=== PATIENT | female | born 1950 | race Caucasian/White ===

== ENCOUNTER → 2017-08-20 | Outpatient (CLI) | payer OTHER, MEDICARE ==
[~2017-08-20] MED LIST: ACT5 PO; ASPEC325 PO; CLB200 PO; ESTR0.3T PO; ONDA4TAB46 PO
--- NOTE | 2017-08-20 12:21 | DIAGNOSTIC IMAGING REPORT ---
VIDEO SWALLOW CLINICAL HISTORY: 67 years-old Female presenting with DYSPHAGIA. TECHNIQUE: Video fluoroscopic evaluation of swallowing was performed in the AP and lateral projections in conjunction with speech pathology. The patient was administered various textures, including nectar-thick and thin liquid barium, a barium coated wafer, and barium pudding. COMPARISON: None. FINDINGS: There is normal hyoid excursion and epiglottic deflection. No significant penetration or aspiration identified. Swallowing function is within normal limits. Intraesophageal reflux suggested. Fluoroscopy dosage (mGy): Not available. Fluoroscopy time: 2.8 minutes. Number of fluoroscopic spot images: 0. IMPRESSION: 1. No aspiration identified. 2. Please see the speech pathologist report for detailed findings and recommendations. Electronically signed by: Mayur Jiménez M.D. 08/20/2017 12:19 PM Dictated Date/Time: 08/20/2017 12:17 PM
--- NOTE | 2017-08-20 13:49 | SWALLOWING EVALUATION ---
HISTORY: This 67 year old woman was referred for a video swallow study at [facility] in order to rule out aspiration and identify the safest consistencies for optimal oral intake. The patient reports feeling tightness in her throat and occasional globus sensation. She also reports that at times she feels as though food gets "stuck" in her throat and has some difficulty swallowing pills. PMH is significant for DJD, osteoporosis, Sjogren's, and macular degeneration. 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 Current diet is regular. PROCEDURE: The patient was seen in the Radiology Department of [facility] for the [facility]. Cursory examination of the oral cavity revealed natural dentition in good condition. Oral motor function was wnl. 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 The patient was seated on a stool and was viewed in both the Anterior-Posterior (A-P) and Lateral planes. Volitional phonation exercises completed in the A-P plane revealed bilateral vocal fold movement and vocal intensity within functional limits. In the lateral plane, the patient was given the following boluses: 1 tsp. thin liquid barium x 2, single swallow thin liquid barium self-presented from a cup, sequential swallows of thin liquid barium self-presented from a straw, 1 tsp. nectar-thick liquid barium, single swallow nectar-thick liquid barium self-presented from a cup, 1 tsp. barium pudding, and 1 club cracker coated in barium pudding. The patient was then repositioned into the A-P plane and given the following boluses: 1 tsp. nectar thick barium and 1 tsp. barium pudding. A barium tablet was also administered. RESULTS: Oral Stage: Lip closure was adequate. The patient was able to maintain a cohesive liquid bolus in the oral cavity without any escape during the liquid bolus hold task. Mastication was timely and efficient. Lingual motion for bolus transport was slow. There was retention lining the tongue and palate after the initial swallow. The initiation of the pharyngeal swallow occurred when the bolus head reached the valleculae. The patient presented with mild oral stage dysphagia and piecemeal like deglutition was evidenced. Pharyngeal Stage: Soft palate elevation was in-complete with a trace column of contrast noted between the soft palate and pharyngeal wall. Laryngeal elevation revealed partial superior movement of the thyroid cartilage and partial approximation of the arytenoids to the epiglottic base. Anterior hyoid excursion and epiglottic deflection were partially reduced. Laryngeal vestibular closure was in-complete, with a narrow column of air being located in the vestibule at the height of the swallow. The pharyngeal stripping wave was present yet diminished. Pharyngeal contraction was complete. There was partial distention and duration of the opening to the pharyngoesophageal segment (PES). Tongue base retraction was reduced, with a narrow column of contrast located between the tongue base and pharyngeal wall during the swallow. There was retention located along the tongue base and in the valleculae after the swallow. There was no evidence of laryngeal penetration or aspiration for this study. Mild tongue base and vallecular retention cleared with a second effortful swallow. The patient had a narrow appearing pharynx. Esophageal stage: There was pudding retention located throughout the mid to distal esophagus, with retrograde flow below the PES. These are suggestive of esophageal dysmotility and reflux. A liquid wash assisted to clear retention. Osteophytes were also noted that mildly impacted bolus flow through the esophagus. No difficulty with the barium tablet-this passed through the esophagus without difficulty. SUMMARY/RECOMMENDATIONS: This patient presents with mild caitlin-pharyngeal swallowing mechanics. She presents with s/s of esophageal dysphagia. The following is recommended: 1. Regular diet, "slippery" and thin liquids. 2. Aspiration and GERD precautions. No Straws. Fully upright for meals and for 30 minutes after meals. Do not lay flat. 3. Safe swallow strategies: Avoid foods that are dry, thick, pasty, or doughy. Use of condiments such as gravy to assist with making foods moist. Rest breaks while eating. Alternate solids and liquids. Small frequent meals. 4. Follow up with PCP as needed. Consider a GI consult with any worsening of esophageal dysphagia. A summary of the results and recommendations was discussed with the patient immediately following the study with verbal understanding. The patient was also provided with verbal and written education regarding a "slippery" diet for improved comfort while eating (avoiding foods that are dry, thick, pasty, or doughy) as needed. She verbalized understanding. Thank you for referral of this patient. Please contact me at if any additional information is needed.
== END | disposition home or self-care (01) ==
LOC: C.RAD 10:59
PROVIDERS: ATTEND Otolaryngology
DX: R13.10 Dysphagia, unspecified (principal)